=== PATIENT | male | born 1970 | race Caucasian/White ===

== ENCOUNTER 2018-02-17 15:30 | Outpatient (CLI) | payer BC ==
--- NOTE | 2018-02-17 15:56 | RAD ---
THREE VIEWS CERVICAL SPINE: Indication: Radiculopathy. Comparison: None. IMPRESSION: No acute fracture, subluxation demonstrated. No definite abnormal translation of motion is evident. P revertebral soft tissues are normal appearing. POS: DANNY
== END 2018-02-17 15:31 | disposition home or self-care (01) ==
LOC: TBSIIMAG 15:30
PROVIDERS: ATTEND Neurological Surgery
DX: M54.12 Radiculopathy, cervical region (principal)
CPT/HCPCS: 72040

== ENCOUNTER 2018-04-03 09:24 | Outpatient (CLI) | payer BC ==
[2018-04-03 10:46] LABS: Hemoglobin 15.1 g/dL (14.0-18.0); Mean Corpuscular HGB CONC 34.7 g/dL (32.0-36.0); Mean Corpuscular Hemoglobin 32.5 pg (27.0-31.0); Mean Corpuscular Volume 93.6 fL (78.0-98.0); Mean Platelet Volume 7.3 fL (7.4-10.4); Platelet Count 145 thou/uL (130-400); RBC Distribution Width 11.2 % (11.5-14.5); Red Blood Cell (RBC) Count 4.65 mill/uL (4.70-6.10); White Blood Cell (WBC) Count 6.2 thou/uL (4.8-10.8)
[2018-04-03 10:58] LABS: PTT 27.4 SEC (22.9-36.1); Prothrombin Time 13.1 SEC (12.0-14.7)
== END 2018-04-03 09:25 | disposition home or self-care (01) ==
LOC: LABBT 09:24
PROVIDERS: ATTEND Neurological Surgery
DX: Z01.812 Encounter for preprocedural laboratory examination (principal); M50.20 Other cervical disc displacement, unspecified cervical region
CPT/HCPCS: 85027; 85610; 85730

== ENCOUNTER 2018-04-07 07:27 | Day surgery (SDC) | payer BC ==
[2018-04-03 09:57] VITALS: BMI 26.5
--- NOTE | 2018-04-06 23:59 | HP ---
HISTORY OF PRESENT ILLNESS: This is a 47-year-old male who reports to our office for evaluation of n heriberto pain with bilateral hand and arm numbness. Patient reports that he has had these symptoms on and off for 18 years, getting worse recently. Patient states that his hand did not feel like his own an d has had difficulty with using his hands when they are numb. His states that he is a strong gu y, but there are times that when opening a jar would be a chore. The patient states that if he drive s or talks on the phone, his pinky and ring fingers will go to sleep. Patient has had PT injections and medications with only a few days of relief. REVIEW OF SYSTEMS: A 10-point review of systems has been completed and is negative other than stated in the HPI above. PAST MEDICAL HISTORY: Anxiety, hypercholesterolemia, chronic pain, headache. PAST SURGICAL HISTORY: Ankle surgery in 1985, thumb surgery in 2011. HOSPITALIZATIONS: Denies any past hospitalizations. FAMILY HISTORY: Father is . Mother is alive. Siblings are alive and children are alive. SOCIAL HISTORY: Smoking, the patient is a nonsmoker. He denies drinking any alcohol or other illici t drug use. Patient is sexually active with his . MEDICATIONS: Lipitor, Wellbutrin. ALLERGIES: No known drug allergies. OBJECTIVE: HEENT: Head normocephalic. Extraocular movements are intact. Pupils are equal, round, and reactive to light. RESPIRATORY: Normal work of breathing on room air. CARDIOVASCULAR: Regular rate and rhythm, normal S1, S2. NECK: Soft and supple. No masses are noted. Range of motion is painful in all directions. Muscle tension in the trapezius and scalenes. NEUROLOGIC: Awake, alert and oriented x3. Memory attention, fund of knowledge and language are norm al. Cranial nerves II-XII are grossly intact. EXTREMITIES: Upper extremities normal. Does not disclose any focal motor weakness, 5/5 deltoids, bi ceps, triceps, wrist extension, finger extension and finger intrinsics. Deep tendon reflexes 2+ bila terally, brachioradialis. Positive Tinel's at the ulnar bilaterally. IMAGING: Cervical MRI herniated nucleus polyposis at C5-6 with central and foraminal stenosis. 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 Dr. Valencia has offered an ACDF of C5-C6. Risks and benefits granger ve been discussed. The risks discussed included, but are not limited to bleeding, infection, CSF shukri k, nerve damage, weakness, swallowing trouble, feeding tube placement, tracheal injury, esophageal in jury, vocal cord injury, spinal cord injury, incontinence, paralysis, ventilator dependence, wheelcha ir dependence, stroke, loss of vision, carotid artery injury, jugular vein injury, hardware displacem ent, stroke, loss of vision, cardiopulmonary complications of anesthesia or . Long-term complic ations discussed included but were not limited to hardware failure degradation of surrounding disks. The patient states that he understands the risks and is willing to proceed with surgery.
[2018-04-07] MEDS ORDERED: CEFAZOLIN/Water 2 GM/20 ML SYRINGE ONE ×2 (07:39→15:43)
[2018-04-07] MEDS ORDERED: Sodium Chloride 0.9% 10 ML ONE (10:02)
[2018-04-07] MEDS ORDERED: Thrombin 5000 UNITS/5 ML VIAL ONE (10:02)
[2018-04-07] MEDS ORDERED: Fentanyl 100 MCG/2 ML VIAL ONE ×2 (11:19→14:09)
[2018-04-07] MEDS ORDERED: Fentanyl 250 MCG/5 ML VIAL ONE (11:19)
--- NOTE | 2018-04-07 13:47 | OP ---
DATE OF PROCEDURE: 04/07/2018 SURGEON: Corry Valencia M.D. [employer]ER: Aurea Hoskins PA-C. PREOPERATIVE INDICATION: Treat pain, prevent neurological deterioration. 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 OPERATIVE PROCEDURE: Anterior cervical diskectomy, intervertebral arthrodesis, placement of interver tebral biomechanical device, anterior cervical plating C5-C6, local morselized autograft, morselized Allograft, and operating microscope. PREOPERATIVE MEDICATION: Ancef 2 grams IV. DRAIN NUMBER: Zero. DRAIN TYPE: None. OPERATIVE DICTATION: The patient was brought to the operating room. General endotracheal anesthesia was induced. The patient was positioned supine on the operating table and a lateral fluoro radiogra ph was used to plan our incision. The right side neck was sterilely prepped and draped. We opened w ith a 10 blade knife and controlled bleeding with bipolar cautery. We dissected sharply to the platy sma and cut this muscle in line with our incision. We continued our dissection medial to the sternoc leidomastoid and lateral to the trachea and esophagus all the way down to the prevertebral space. We placed a marker at C5-6 and took a lateral fluoro radiograph to confirm the levels upon which we wer e operating. We then elevated the longus colli muscles off the anterior surface of the vertebrae at C5-6 and placed a self-retaining retractor beneath them. Distraction pins were placed at C5 and C6 a nd we distracted across the intervening interspace. We incised the interspace with a 15 blade knife and removed disk contents using curettes and rongeurs. As we approached the posterior longitudinal l igament, the operative microscope was brought in the field. Under microscopic magnification using microsurgical techniques, we removed the remainder of the inter vertebral disk. We accessed the ventral epidural space with a micro curet and used Kerrison rongeurs to remove posterior osteophyte and posterior longitudinal ligament across the entire interspace from one neural foramen all the way to the other. With a complete decompression of the dura from foramen to foramen. We turned our attention to arthrodesis. Using angled curet, we prepared the endplates for grafting, we measured the height of the interspace to 8 mm with a bone rasp and brought an 8 mm PEEK intervertebral graft into the field. Osteophytes t hat had been removed during our decompression were carefully morcellized on the back table after soft tissue was removed. The morselized bone was added to demineralized bone matrix as our fusion substr ate and the substrate was placed in the PEEK graft. The 8 mm PEEK graft was advanced into the inters pace under radiographic guidance to the appropriate depth. We then removed our distraction pins and brought a 14 mm plate into the field. We removed the operating microscope, we drilled ship's pilot holes th rough the plate into the vertebral body at C5 and C6 and affixed the plate using fixed angle screws a t C6 and variable angle screws at C5. We engaged the locking mechanism over each of the 4 screws. A P and lateral fluoro radiographs confirmed adequate position of instrumentation. We irrigated copiou sly with bacitracin irrigation. We closed the wound in anatomic layers and applied a sterile dressin g. This was a clean case and no contamination.
[2018-04-07] MEDS ORDERED: HYDROcodone/Acetaminophen 5/325 mg Tablet ONE (14:56)
== END 2018-04-07 16:00 | disposition home or self-care (01) ==
LOC: SDC 07:27
PROVIDERS: ATTEND Neurological Surgery
PROC: 0RG10A0 Fusion of Cervical Vertebral Joint with Interbody Fusion Device, Anterior Approach, Anterior Column, Open Approach (ICD-10-PCS; principal; 2018-04-07)
DX: M50.122 Cervical disc disorder at C5-C6 level with radiculopathy (principal); E78.00 Pure hypercholesterolemia, unspecified; Z79.899 Other long term (current) drug therapy
CPT/HCPCS: 76001; 96374; 96375; A4216; C1713; C1776; J0131; J3010; J3490